=== PATIENT | male | born 1980 | race Caucasian/White ===

== ENCOUNTER 2019-01-04 09:31 | Day surgery (SDC) | payer BC ==
[2019-01-03 14:24] VITALS: BMI 34.0
[2019-01-04 11:42] VITALS: TEMP 98
[2019-01-04 12:42] LABS: BASO % 0.6 % (0-2.0); EOS % 2.2 % (0-4.5); HEMATOCRIT 43.2 % (35.4-49); HEMOGLOBIN 14.6 GM/dL (11.7-16.9); LYMPH % 21.4 % (8-40); MCH 30.2 pg (25.7-33.7); MCHC 33.8 g/dl (32.0-35.9); MEAN CELL VOLUME 89.2 fl (80-96); MEAN PLT VOLUME 7.5 fl (7.5-11.1); MONO % 5.6 % (3.8-10.2); NEUT % 70.2 % (42.8-82.8); PLATELET COUNT 278 K/MM3 (134-434); RBC 4.84 M/mm3 (4.00-5.60); RDW 12.4 % (11.9-15.9); WHITE BLOOD COUNT 7.2 K/mm3 (4.0-10.0)
[2019-01-04 13:03] LABS: INR 1.15 (0.83-1.09); PROTHROMBIN TIME (PATIENT) 13.6 SEC (9.7-13.0)
[2019-01-04 13:49] LABS: ALBUMIN 4.1 g/dl (3.4-5.0); ALK PHOS 67 U/L (45-117); ANION GAP 6 MMOL/L (8-16); BILIRUBIN,TOTAL 1.6 mg/dL (0.2-1); BLOOD UREA NITROGEN 16 mg/dL (7-18); CHLORIDE 104 mmol/L (98-107); CO2 28 mmol/L (21-32); CREATININE 1.1 mg/dL (0.55-1.3); GLUCOSE,RANDOM 84 mg/dL (74-106); POTASSIUM 4.1 mmol/L (3.5-5.1); SGOT/AST 21 U/L (15-37); SGPT/ALT 43 U/L (13-61); SODIUM 138 mmol/L (136-145)
[2019-01-04 14:24] VITALS: BP 109/61; PULSE 78
[2019-01-05 04:13] LABS: SERUM IRON SATURATION 20 % (15-55); TOTAL IRON BINDING CAPACITY 352 ug/dL (250-450); UIBC 280 ug/dL (111-343)
--- NOTE | 2019-01-05 14:36 | PATH ---
Surgical Pathology Report Patient Name: ELÍAS ALBRECHT [facility]. Rec. #: [id number] /Age/Gender: 1980 (Age: 38) / M Account: [id number] Location: U-ENDOSCOPY Taken: 01/04/2019 Received: 01/04/2019 Reported: 01/05/2019 Physicians: Tanesha Hickman M.D. Specimen(s) Received RECTAL MASS Clinical History Rectal bleeding, rectal mass Final Diagnosis RECTAL MASS, BIOPSY: INVASIVE ADENOCARCINOMA, WELL TO MODERATELY DIFFERENTIATED. Comment: Findings discussed with . Additional studies for Mismatch repair proteins (MMR) are pending and will be reported as an addendum. Electronically Signed Prisca Castaneda M.D. Addendum Reported: 01/06/2019 Addendum Diagnosis Immunohistochemical stains for MisMatch Repair Protein Analysis performed at [facility] in [place], [place] ([id number]) and interpreted at [facility] show the following: RESULTS: HMLH-1 INTACT NUCLEAR EXPRESSION HMSH-2 INTACT NUCLEAR EXPRESSION HMSH-6 INTACT NUCLEAR EXPRESSION PMS2 INTACT NUCLEAR EXPRESSION INTERPRETATION: No loss of nuclear expression of MMR proteins: low probability of microsatellite instability-high (MSI-H) Prisca Castaneda M.D. Gross Description Received in formalin labeled "biopsy rectal mass," is a 0.7 x 0.6 x 0.2 cm aggregate of moreno soft tissue fragments. The formalin is filtered and the specimen is entirely submitted in one cassette. /01/04/201901/04/2019
== END 2019-01-04 12:40 | disposition home or self-care (01) ==
LOC: JASU-ENDO 09:31
PROVIDERS: ATTEND Internal Medicine Gastroenterology
PROC: 0DBP8ZX Excision of Rectum, Via Natural or Artificial Opening Endoscopic, Diagnostic (ICD-10-PCS; principal; 2019-01-04 10:30)
DX: C20 Malignant neoplasm of rectum (principal); K64.8 Other hemorrhoids
CPT/HCPCS: 36415; 80053; 82378; 82728; 83540; 83550; 85025; 85610; 86140; 88305-TC